=== PATIENT | male | born 1960 | race African-American/Black ===

== ENCOUNTER 2016-06-07 00:44 | Emergency (ER) | payer OTHER ==
[~2016-06-07] VITALS: Ht 180.3 cm; Wt 83.6 kg
[~2016-06-07 00:44] MED LIST: AMLODIPINE BESY10 MG PO; AMLODIPINE BESYL5 MG PO; MOBIC7.5 MG PO
[2016-06-07 00:53] VITALS: BP 169/92
[2016-06-07] MEDS ORDERED: MOTRIN800 MG PO (01:11)
[2016-06-07] MEDS ORDERED: ULTRAM50 MG PO (01:11)
[2016-06-07] MEDS ORDERED: PEN-VEE K,VEET500 MG PO (01:11)
== END 2016-06-07 01:48 | disposition home or self-care (01) ==
LOC: EME 00:44
DX: K02.9 Dental caries, unspecified (principal); J02.9 Acute pharyngitis, unspecified
CPT/HCPCS: 99281; 99284